=== PATIENT | male | born 1940 | race Caucasian/White ===

== ENCOUNTER 2023-07-26 11:39 | Emergency (ER) | payer MEDICARE, SELFPAY ==
[2023-07-26 11:46] VITALS: BP 131/69
[2023-07-26 12:15] LABS: % Basophils 0.1 % (0-2); % Eosinophils 0.4 % (0-6); % Immature Granulocytes 0.5 % (0-0.5); % Lymphocytes 12.7 % (20.5-51.1); % Monocytes 5.3 % (1.7-9.3); Absolute Immature Granulocytes 0.1 10^3/uL (0-0.05); Absolute Lymphocytes 1.2 10^3/uL (1.2-3.4); Absolute Monocytes 0.5 10^3/uL (0.1-0.6); Absolute Neutrophils 7.5 10^3/uL (1.4-6.5); Hematocrit 43.7 % (39.0-52.0); Hemoglobin 15.1 g/dL (13.0-18.0); Mean Corp Hgb Conc. 34.6 g/dL (33.0-37.0); Mean Corpuscular Hgb 29.7 pg (27.0-31.0); Mean Corpuscular Volume 85.9 fL (80.0-94.0); Mean Platelet Volume 9.1 fL (7.4-10.4); Nucleated Red Blood Cells % 0 % (-); Platelet Count 135 10^3/uL (130-400); Red Blood Cell Count 5.09 10^6/uL (4.70-6.10); Red Cell Dist. Width 13.8 % (11.5-14.5); White Blood Cell Count 9.3 10^3/uL (4.8-10.8)
[2023-07-26 12:25] LABS: ALT (SGPT) 32 U/L (0-50); AST (SGOT) 39 U/L (17-59); Albumin 4.6 g/dl (3.5-5.0); Alkaline Phosphatase 59 U/L (38-126); Blood Urea Nitrogen 28 mg/dl (9-20); Calcium 9.7 mg/dl (8.4-10.2); Carbon Dioxide 18 mmol/L (22-30); Chloride 108 mmol/L (98-107); Glucose 106 mg/dl (70-99); Potassium 5.9 mmol/L (3.5-5.1); Sodium 132 mmol/L (135-145); Total Bilirubin 0.9 mg/dl (0.2-1.3); Total Protein 6.9 g/dl (6.3-8.2); eGFR > 60.00
--- NOTE | 2023-07-26 13:39 | ED.GENMED ---
History of Present Illness
General
Chief Complaint: Abnormal Lab Value
Time Seen by Provider: 07/26/23 13:39
Travel History
Have you had any contact with someone who has COVID-19?: No
Do you have any symptoms of coronavirus? Fever > 100 degrees, chills, cough, shortness of breath, sore throat, loss of taste or smell, muscle aches, or headache?: No
History of Present Illness
History of Present Illness:
HPI: The patient had blood work done 2 days ago and was told to come to the ED for evaluation due to high potassium level (I spoke to Dr. Lezama's office and the nurse tells me that the potassium was 6.5). 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
referred him here and would not see him because of the high potassium level. His primary care doctor did tell him to stop the spironolactone as of a few days ago. He is asymptomatic.
EXAM:
GENERAL: Well appearing in no distress
HEENT: Moist oral mucosa
CARDIOVASCULAR: No murmurs, normal heart rate, regular rhythm, No chest wall tenderness
PULMONARY: No respiratory distress, breath sounds are clear and equal
ABDOMEN: Soft with no peritoneal signs, no tenderness
NEUROLOGIC: Excellent strength all extremities, no coordination deficits
PSYCHIATRIC: Appropriate mental status, normal insight and judgement
EXTREMITIES: Nontender, no edema, moves all extremities equally
SKIN: No rash, no lesions
TIME OF INITIAL ENCOUNTER: 1 PM
NUMBER AND COMPLEXITY OF PROBLEMS ADDRESSED AT THE ENCOUNTER
� Chronic conditions affecting care: High blood pressure
� Acute Exacerbation and/or Progression of Chronic Illness: This is an acute problem
� Differential Diagnosis includes: Lab error, hyperkalemia, medication induced, dysrhythmia
AMOUNT AND/OR COMPLEXITY OF DATA TO BE REVIEWED AND ANALYZED
� I performed an independent evaluation of and my interpretation is:
EKG: Sinus 48, normal axis, lateral ST abnormality; the lateral ST abnormality is very similar in comparison to 2013
CT:
X-rays:
Laboratory Studies: White count 9.3, hemoglobin 15.1, potassium 5.9, bicarb 18, renal function is normal, BUN 28
Other:
� Review of other/old records: I reviewed old records, bicarb and potassium and not been elevated in the past
� Clinical information was obtained by an independent historian: I spoke to at bedside
� Prescriptions/Medications Considered but not given:
� Further testing considered but not performed:
RISK OF COMPLICATIONS AND/OR MORBIDITY OR MORTALITY OF PATIENT MANAGEMENT
� Social determinants of health affecting care: Lives at home
� Discussion with other providers: I discussed case with Dr. Dodd who agrees with plan of discharge, dose of Lokelma, bicarb as an outpatient; I also spoke to staff at Dr. Clemente's office who indicates that potassium was 6.53
days ago.
� Escalation of care including admission/observation vs risk of discharge considered: The patient is confirmed to be somewhat hyperkalemic. No definite new concerning EKG findings however he is somewhat bradycardic. I have
ordered a dose of Lokelma. EKG is unchanged from prior.
Phy Exam
Physical Exam
Physical Exam:
See HPI
Course
Orders/Labs/Results
Orders:
Orders
07/26/23 11:49
Electrocardiogram (*1) Urgent
Reason for Study: Bradycardia / Tachycardia
EKG- Treatment ONCE
07/26/23 12:03
Complete Blood Count/With Diff Urgent
Comprehensive Metabolic Panel Urgent
Magnesium Urgent
Comment: ADD ON
07/26/23 13:41
Sodium Zirconium Cyclosilicate [Lokelma] 10 gram PO NOW STA
07/26/23 14:07
Add On- LAB Urgent
Tests Added?: magnesium
Abnormal Lab Results
07/26/23
12:03
Abs Immat Gran (auto) 0.1 H 10^3/uL
(0-0.05)
Absolute Neuts (auto) 7.5 H 10^3/uL
(1.4-6.5)
Neutrophils % 81.0 H %
(42.2-75.2)
Lymphocytes % 12.7 L %
(20.5-51.1)
Sodium 132 L mmol/L
(135-145)
Potassium 5.9 H mmol/L
(3.5-5.1)
Chloride 108 H mmol/L
(98-107)
Carbon Dioxide 18 L mmol/L
(22-30)
BUN 28 H mg/dl
(9-20)
Glucose 106 H mg/dl
(70-99)
07/26/23 12:03
07/26/23 12:03
Vital Signs
Initial and Last Documented VS:
Initial Vital Signs
Temp Pulse Resp BP Pulse Ox
98.1 F 50 18 131/69 97
07/26/23 11:46 07/26/23 11:46 07/26/23 11:46 07/26/23 11:46 07/26/23 11:46
Last Documented Vital Signs
Temp Pulse Resp BP Pulse Ox
98.1 F 53 16 103/56 94
07/26/23 11:46 07/26/23 15:01 07/26/23 15:01 07/26/23 15:01 07/26/23 15:01
*Critical Care Note
Total Time (30-74mins, 75-104mins- exclusive of procedures): Not Applicable
ED Attending Note
-
Portions of this chart may have been created with voice recognition software.� Occasional wrong word or��sound alike� substitutions may have occurred due to the inherent limitations of voice recognition software.
Discharge Plan
Departure
Patient Disposition: Home (Routine Discharge)
Date of Disposition: 07/26/23
Time of Disposition: 14:11
Patient with high blood pressure during this ER visit?: Yes
Discharge Problem:
Hyperkalemia
Instructions: Hyperkalemia (DC)
Prescriptions:
New
sodium bicarbonate 650 mg tablet
650 mg PO BID Qty: 8 0RF
No Action
aspirin 81 mg Tablet,Delayed Release (Dr/Ec)
81 mg PO DAILY
spironolactone [Aldactone] 25 mg Tablet
50 mg PO DAILY
calcium carbonate [Calcium 500] 500 mg calcium (1,250 mg) Tablet
500 mg PO DAILY
ascorbic acid (vitamin C) [Vitamin C] 500 mg Tablet
500 mg PO DAILY
valsartan [Diovan] 320 mg Tablet
320 mg PO DAILY
gabapentin 300 mg Capsule
300 mg PO HS
ezetimibe [Zetia] 10 mg Tablet
10 mg PO DAILY
rosuvastatin [Crestor] 40 mg Tablet
40 mg PO QPM
Fruit and Vegetable Daily 5-6-150 mg Capsule
3 cap PO DAILY
cholecalciferol (vitamin D3) [Vitamin D3] 25 mcg (1,000 unit) Tablet
25 mcg PO DAILY
melatonin 10 mg Tablet
20 mg PO HS
magnesium oxide 400 mg magnesium Tablet
400 mg PO DAILY
Balance Of Nature
3 tab PO DAILY
Super K
1 tab PO DAILY
Referrals:
Nguyễn Lezama MD [Family Provider] -
Activity Restrictions/Additional Instructions:
I spoke to a nurse at Dr. Lezama's office who indicates your potassium was 6.5 the other day. Today it is 5.9 (normal is between 3.5 and 5.1). I spoke to one of our kidney doctors. She agrees that you should hold off on the spironolactone. You
should still have the repeat blood work done by your primary care doctor on Sunday. She also recommends that you start sodium bicarbonate over the next few days which I sent to your pharmacy. Avoid foods that are high in potassium such as
potatoes, tomatoes, bananas.
Interventions
Interventions:
*Risk Screen - Suicide Last Done: 07/26/23 11:46
*General Assessment Last Done: 07/26/23 11:46
*Neglect/Abuse Screening Last Done: 07/26/23 11:46
ED- Fall Risk Assessment Last Done: 07/26/23 15:11
*ED COVID-19 Vaccine History Last Done: 07/26/23 11:46
*Nursing Disposition Last Done: 07/26/23 15:12
Discharge Date and Time
Discharge Date/Time: 07/26/23 15:12
Print Language: CAMBODIAN
[2023-07-26 13:55] VITALS: BP 111/66
[2023-07-26 14:02] VITALS: BP 105/63
[2023-07-26] MEDS: LOKELMA 10 GRAM PO (14:10)
[2023-07-26 14:58] VITALS: BP 107/58
[2023-07-26 15:00] VITALS: BP 103/56
[2023-07-26 15:01] VITALS: BP 103/56
== END 2023-07-26 15:12 | disposition home or self-care (01) ==
LOC: EMR 11:39
PROVIDERS: Emergency Medicine; EMERGENCY PHYSICIAN Emergency Medicine; FAMILY PHYSICIAN Family Medicine
DX: E87.5 Hyperkalemia (principal)
CPT/HCPCS: 99283; 80053; 83735; 85025; 93005

== ENCOUNTER 2023-08-25 01:38 | Emergency (ER) | payer MEDICARE, SELFPAY ==
[2023-08-25 01:43] VITALS: BP 146/82
--- NOTE | 2023-08-25 02:54 | ED.GENMED ---
History of Present Illness
General
Chief Complaint: Wound Check/Suture Removal
Source: patient
Exam Limitations: none
Time Seen by Provider: 08/25/23 02:03
Nursing documentation reviewed up to this point in time: agreed with
Travel History
Have you had any contact with someone who has COVID-19?: No
Do you have any symptoms of coronavirus? Fever > 100 degrees, chills, cough, shortness of breath, sore throat, loss of taste or smell, muscle aches, or headache?: No
History of Present Illness
History of Present Illness:
82-year-old male with history as documented presents for evaluation of postoperative bleeding. Patient had surgery with Dr. Ross on his left arm on 08/23/2023�he says it was related to carpal tunnel syndrome. He has an incision on his left elbow
and the olecranon region with sutures in place he also has an incision in the left palm. He has been wearing a splint postoperatively. He had the dressing and splint changed yesterday. Today he noted some bleeding through the dressing that became
rather profuse and so he came to the emergency room for assessment. He is on a baby aspirin daily no other blood thinners. No trauma. No other complaints.
Review of Systems
Review of Systems
All Other Systems: ROS reviewed and negative except as documented in HPI and ROS
Skin: Reports other (Surgical site bleeding)
Phy Exam
Physical Exam
Physical Exam:
General: Well appearing and non-toxic
HEENT: protecting airway
Neck: appears supple
CV: No evidence of cyanosis
Resp: No accessory muscle use
Abd: Non-distended
Extremities: No deformities
Neuro: Alert
Psych: Normal affect
Skin: Patient has surgical incision approximately 6 cm and linear directly over the olecranon region with sutures in place�wound is well-approximated but there is a tiny steady oozing bleed from margin of the incision; he has a more distal incision
on the palm which appears clean without bleeding or infection
Scores
Heart Failure Risk
Heart Failure Risk Score: Not Applicable
Heart Score for Chest Pain Patients
STEMI patient?: Not applicable
Withdrawal Assessment of Alcohol
Withdrawal Assessment Completed?: Not applicable
Course
Vital Signs
Initial and Last Documented VS:
Initial Vital Signs
Temp Pulse Resp BP Pulse Ox
36.7 C 86 18 146/82 98
08/25/23 01:43 08/25/23 01:43 08/25/23 01:43 08/25/23 01:43 08/25/23 01:43
Last Documented Vital Signs
Temp Pulse Resp BP Pulse Ox
36.7 C 86 18 146/82 98
08/25/23 01:43 08/25/23 01:43 08/25/23 01:43 08/25/23 01:43 08/25/23 01:43
MDM/Problems Addressed
Differential Diagnosis Includes:
Postoperative bleeding
MDM/Problems Addressed:
82-year-old male presents with postoperative bleeding from left elbow incision. He is on aspirin but no other blood thinners. Applied direct pressure with hemostasis. Will monitor for rebleeding.
Observed for 2 hours, patient still hemostatic. Will discharge to follow-up with his surgeon as scheduled.
Chronic conditions affecting care:
CAD requiring treatment with aspirin�complicates his bleeding
*Pulse Oximetry
Patient hypoxic: no
*Critical Care Note
Total Time (30-74mins, 75-104mins- exclusive of procedures): Not Applicable
ED Attending Note
-
Portions of this chart may have been created with voice recognition software.� Occasional wrong word or��sound alike� substitutions may have occurred due to the inherent limitations of voice recognition software.
Discharge Plan
Departure
Patient with high blood pressure during this ER visit?: Yes
Discharge Problem:
Post-op bleeding
Instructions: Bleeding After Surgery
Prescriptions:
No Action
aspirin 81 mg Tablet,Delayed Release (Dr/Ec)
81 mg PO DAILY
spironolactone [Aldactone] 25 mg Tablet
50 mg PO DAILY
calcium carbonate [Calcium 500] 500 mg calcium (1,250 mg) Tablet
500 mg PO DAILY
ascorbic acid (vitamin C) [Vitamin C] 500 mg Tablet
500 mg PO DAILY
valsartan [Diovan] 320 mg Tablet
320 mg PO DAILY
gabapentin 300 mg Capsule
300 mg PO HS
ezetimibe [Zetia] 10 mg Tablet
10 mg PO DAILY
rosuvastatin [Crestor] 40 mg Tablet
40 mg PO QPM
Fruit and Vegetable Daily 5-6-150 mg Capsule
3 cap PO DAILY
cholecalciferol (vitamin D3) [Vitamin D3] 25 mcg (1,000 unit) Tablet
25 mcg PO DAILY
melatonin 10 mg Tablet
20 mg PO HS
magnesium oxide 400 mg magnesium Tablet
400 mg PO DAILY
Balance Of Nature
3 tab PO DAILY
Super K
1 tab PO DAILY
sodium bicarbonate 650 mg tablet
650 mg PO BID Qty: 8 0RF
Referrals:
Iban Ross MD [Active] - Keep scheduled appt
Nguyễn Lezama MD [Family Provider] -
Activity Restrictions/Additional Instructions:
Thank you for visiting the Emergency Department at [facility].
1. Please schedule a follow up appointment as directed. Call first thing tomorrow morning to make an appointment.
2. If indicated, please take your medications as instructed and indicated on discharge paperwork.
3. If any of your symptoms do not improve, or persist, or become more severe within 6-12 hours, please return to the emergency department for further care.
4. Please return to the emergency department if you develop a headache, neck pain/stiffness, fever greater than 100.4F, chest pain, shortness of breath, persistent nausea, vomiting, slurred speech, difficulty walking, numbness/tingling, weakness,
signs of infection or any other symptoms that are worrisome to you.
Please call [phone] if you have any questions.
Interventions
Interventions:
ED-Skin Assessment Last Done: 08/25/23 02:38
Discharge Date and Time
Print Language: POLISH
[2023-08-25 03:40] VITALS: BP 140/81
--- NOTE | 2023-08-25 03:42 | EDRN ---
Wound site has not been bleeding since taking off pressure bandage. aware. Pt. wishes to continue to monitored so as to ensure site does not rebleed. Will continue to monitor.
--- NOTE | 2023-08-25 04:10 | EDRN ---
Splint and ANILA wrap reapplied by Dr. Longo, pt. w/ no active bleeding noted, positive sensation and <3 cap refill to distal fingertips.
== END 2023-08-25 04:14 | disposition home or self-care (01) ==
LOC: EMR 01:38
PROVIDERS: EMERGENCY PHYSICIAN Emergency Medicine; FAMILY PHYSICIAN Family Medicine
DX: M96.830 Postprocedural hemorrhage of a musculoskeletal structure following a musculoskeletal system procedure (principal); Y83.8 Other surgical procedures as the cause of abnormal reaction of the patient, or of later complication, without mention of misadventure at the time of the procedure; I10 Essential (primary) hypertension; Z95.5 Presence of coronary angioplasty implant and graft; Z79.82 Long term (current) use of aspirin
CPT/HCPCS: 99282

== ENCOUNTER → 2023-10-18 14:18 | Outpatient (REF) | payer MEDICARE, SELFPAY ==
[2023-10-18 14:38] LABS: % Basophils 0.1 % (0-2); % Eosinophils 0.9 % (0-6); % Immature Granulocytes 0.1 % (0-0.5); % Lymphocytes 13.6 % (20.5-51.1); % Monocytes 9.3 % (1.7-9.3); Absolute Eosinophils 0.1 10^3/uL (0-0.7); Absolute Lymphocytes 1.3 10^3/uL (1.2-3.4); Absolute Monocytes 0.9 10^3/uL (0.1-0.6); Absolute Neutrophils 7.1 10^3/uL (1.4-6.5); Hematocrit 44.8 % (39.0-52.0); Hemoglobin 15.1 g/dL (13.0-18.0); Mean Corp Hgb Conc. 33.7 g/dL (33.0-37.0); Mean Corpuscular Hgb 29.5 pg (27.0-31.0); Mean Corpuscular Volume 87.5 fL (80.0-94.0); Mean Platelet Volume 9.3 fL (7.4-10.4); Platelet Count 107 10^3/uL (130-400); Red Blood Cell Count 5.12 10^6/uL (4.70-6.10); White Blood Cell Count 9.4 10^3/uL (4.8-10.8)
== END ==
LOC: OIDL 14:18
PROVIDERS: ATTENDING PHYSICIAN Internal Medicine Hematology & Oncology; FAMILY PHYSICIAN Family Medicine
DX: R23.3 Spontaneous ecchymoses (principal); D69.6 Thrombocytopenia, unspecified
CPT/HCPCS: 36415; 85025

== ENCOUNTER → 2024-04-03 14:08 | Outpatient (REF) | payer MEDICARE, SELFPAY | LOC: HWRAD 14:08 | PROVIDERS: ATTENDING PHYSICIAN Physical Medicine & Rehabilitation; FAMILY PHYSICIAN Family Medicine | DX: M48.062 Spinal stenosis, lumbar region with neurogenic claudication (principal); Z98.890 Other specified postprocedural states | CPT/HCPCS: 72110; 72131 ==

== ENCOUNTER → 2024-09-23 13:06 | Outpatient (REF) | payer MEDICARE, SELFPAY ==
[2024-09-23 13:42] LABS: Hematocrit 42.7 % (39.0-52.0); Hemoglobin 14.3 g/dL (13.0-18.0); Mean Corp Hgb Conc. 33.5 g/dL (33.0-37.0); Mean Corpuscular Volume 85.6 fL (80.0-94.0); Nucleated Red Blood Cells % 0 % (-); Platelet Count 129 10^3/uL (130-400); Red Cell Dist. Width 15.1 % (11.5-14.5)
[2024-09-25 19:49] LABS: Platelet Antibody, Direct IgG Negative (Negative); Platelet Antibody, Direct IgM Negative (Negative)
[2024-09-26 07:50] LABS: Beta-2-Glycoprotein I Ab. IgA <10 SAU (<=20)
[2024-09-26 22:02] LABS: Beta-2-Glycoprotein I Ab. IgG <10 SGU (<=20); Beta-2-Glycoprotein I Ab. IgM <10 SMU (<=20)
== END ==
LOC: REG 13:06
PROVIDERS: ATTENDING PHYSICIAN Internal Medicine Hematology & Oncology; FAMILY PHYSICIAN Family Medicine
DX: R23.3 Spontaneous ecchymoses (principal); D69.6 Thrombocytopenia, unspecified
CPT/HCPCS: 36415; 85025; 86023; 86146; 86147